=== PATIENT | female | born 1965 | race Caucasian/White ===

== ENCOUNTER 2021-03-15 07:13 | Outpatient (CLI) | payer BC | END 2021-03-15 07:14 | disposition home or self-care (01) | LOC: CSHLAB 07:13 | PROVIDERS: ATTEND Obstetrics & Gynecology | DX: Z01.818 Encounter for other preprocedural examination (principal); Z20.822 Contact with and (suspected) exposure to COVID-19; N84.0 Polyp of corpus uteri | CPT/HCPCS: 80048; 85027; 86850; 86900; 86901; 93005; 93010; U0003; U0005 ==

== ENCOUNTER 2021-03-18 11:03 | Day surgery (SDC) | payer BC ==
[2021-03-10 15:05] VITALS: BMI 36.8
[2021-03-15 09:34] LABS: Hemoglobin 12.2 g/dL (12.0-15.5); Mean Corpuscular HGB CONC 32.5 g/dL (32.0-36.0); Mean Corpuscular Hemoglobin 29.6 pg (27.0-33.0); Platelet Count 239 10x3/uL (150-450); Red Blood Cell (RBC) Count 4.12 10x6/uL (3.90-5.03); White Blood Cell (WBC) Count 10.5 10x3/uL (3.5-10.5)
[2021-03-15 09:44] LABS: Anion Gap 17 mmol/L (10-20); BUN (Urea Nitrogen) 13 mg/dL (9.8-20.1); Calc. Creatinine Clearance 0 mL/min (70-130); Calcium 8.7 mg/dL (7.8-10.44); Carbon Dioxide 18 mmol/L (22-29); Chloride 108 mmol/L (98-107); Glucose 150 mg/dL (70-105); Potassium 5.2 mmol/L (3.5-5.1); Sodium 138 mmol/L (136-145)
[2021-03-15 21:55] LABS: SARS-CoV-2 PCR by NAA Not Detected (NotDetected)
[2021-03-18] MEDS ORDERED: Lidocaine 1% MPF 2 ML VIAL ONE (12:10)
[2021-03-18] MEDS ORDERED: Ondansetron PF 4 MG/2 ML Vial ONE (13:18)
[2021-03-18] MEDS ORDERED: Lidocaine 2% PF 5 ML VIAL ONE (13:18)
[2021-03-18] MEDS ORDERED: PROPOFOL 20 ML ONE (13:18)
[2021-03-18] MEDS ORDERED: Dexamethasone 4 mg/ml Vial ONE (13:18)
[2021-03-18] MEDS ORDERED: Fentanyl 100 MCG/2 ML VIAL ONE (13:18)
[2021-03-18] MEDS ORDERED: CEFAZOLIN 1 GM VIAL ONE (13:22)
[2021-03-18] MEDS ORDERED: ePHEDrine Sulfate 50 MG/10 ML VIAL ONE (13:43)
== END 2021-03-18 14:40 | disposition home or self-care (01) ==
LOC: CSHSDC 11:03
PROVIDERS: ATTEND Obstetrics & Gynecology
PROC: 0UB98ZX Excision of Uterus, Via Natural or Artificial Opening Endoscopic, Diagnostic (ICD-10-PCS; principal; 2021-03-18)
DX: N84.0 Polyp of corpus uteri (principal); D25.9 Leiomyoma of uterus, unspecified; I10 Essential (primary) hypertension; E66.01 Morbid (severe) obesity due to excess calories; Z68.36 Body mass index [BMI] 36.0-36.9, adult; Z79.899 Other long term (current) drug therapy; Z20.822 Contact with and (suspected) exposure to COVID-19
CPT/HCPCS: 80048; 85027; 86850; 86900; 86901; 88305; J0690; J1100; J2001; J2405; J2704; J3010; U0003; U0005